=== PATIENT | male | born 1985 | race African-American/Black ===

== ENCOUNTER 2018-07-24 06:28 | Emergency (ER) | payer OTHER ==
[2018-07-24] MEDS ORDERED: Ibuprofen 800 MG TAB ONE (06:49)
== END 2018-07-24 06:56 | disposition home or self-care (01) ==
LOC: ERS 06:28
DX: M77.51 Other enthesopathy of right foot and ankle (principal); E11.9 Type 2 diabetes mellitus without complications; F17.210 Nicotine dependence, cigarettes, uncomplicated; Z79.84 Long term (current) use of oral hypoglycemic drugs; Z79.82 Long term (current) use of aspirin
CPT/HCPCS: 99283

== ENCOUNTER 2020-04-16 07:46 | Emergency (ER) | payer OTHER, SELFPAY ==
[2020-04-16 12:26] LABS: SARS-CoV-2 PCR by NAA Not Detected (NotDetected)
== END 2020-04-16 08:23 | disposition home or self-care (01) ==
LOC: ERS 07:46
DX: R05 Cough (principal); Z20.822 Contact with and (suspected) exposure to COVID-19; E11.9 Type 2 diabetes mellitus without complications; F17.210 Nicotine dependence, cigarettes, uncomplicated
CPT/HCPCS: 87635; 99283; U0003; U0005